=== PATIENT | female | born 1980 | race African-American/Black ===

== ENCOUNTER 2016-09-09 14:11 | Emergency (ER) | payer OTHER | END 2016-09-09 14:52 | disposition home or self-care (01) | LOC: ER 14:11 | DX: B34.9 Viral infection, unspecified (principal); F41.9 Anxiety disorder, unspecified; Z88.0 Allergy status to penicillin; Z88.2 Allergy status to sulfonamides; Z88.8 Allergy status to other drugs, medicaments and biological substances; Z91.040 Latex allergy status | CPT/HCPCS: 99283 ==

== ENCOUNTER 2016-11-11 10:31 | Inpatient (IN) | payer OTHER ==
--- NOTE | ~2016-11-11 | DS ---
Discharge Summary [facility] [address] [place]. [address] NAME: ELISABET SHETTY : 84 STATUS : DIS IN PAT#: [id number] AGE: 36 ADM/REG DATE : 11/11/16 MR#: [id number] REPORT SERV DATE: 11/23/16 DICTATED BY: MIL NETTLES DATE: 11/22/16 REPORT STATUS : Draft TRANSCRIBED BY: MODL DATE: 11/22/16 ADMISSION DATE: 11/11/2016 DISCHARGE DATE: 11/22/2016 REASON FOR ADMISSION: This is a 36-year-old female who was diagnosed with CVA. In May 2016, she went to rehab, had gotten better by August with only occasional left-sided facial numbness. However, over the eight days prior to admission, she had had severe right-sided pain, like frostbite and right-sided numbness and it had extended from her neck down to her toes, and had even included her face to some. DISCHARGE DIAGNOSES: 1. Transverse myelitis. 2. Multiple sclerosis. HOSPITAL COURSE: The patient admitted with, had a Neurology consult, brain imaging, had MRI of the thoracic spine which was normal. MRI cervical spine showed focal intramedullary inflammatory lesion at C2 level consistent with transverse myelitis. The patient also had additional thoracic MRI which showed white matter suppression demonstrating additional thoracic cord lesions. She would be positive for oligo banding. She was placed on oral steroids. The patient numbness and weakness would show much improvement. Initially, the plan was to try to get her an inpatient rehab, however, insurance had no rehab benefits, so after improvement, the patient was able to ambulate and shower herself using walker, so plans were made for outpatient PT with rolling walker for home with followup with Neurology in one to two months and that was completed today. DISCHARGE CONDITION: Stable. DISCHARGE MEDICATIONS: 1. Neurontin 800 mg p.o. q.6 hours. 2. Methylprednisone 4 mg p.o. one tablet the night of 11/22/2016 and one tablet in the a.m. 11/23/2016, then discontinue. 3. Percocet 5/325 one to two tabs q.6 hours p.r.n. DISCHARGE PLAN: The patient discharged to home with outpatient rehab, home rolling walker, and establish primary care physician. Follow up with Dr. Tang, Neurology, in four to eight weeks. DICTATED BY: MARY Del Valle/SUSY Mil Nettles APN Discharge Summary [address] [facility] [place] [address] NAME: ELISABET SHETTY : 84 STATUS : DIS IN PAT#: [id number] AGE: 36 ADM/REG DATE : 11/11/16 MR#: [id number] REPORT SERV DATE: 11/23/16 DICTATED BY: MIL NETTLES DATE: 11/22/16 REPORT STATUS : Draft TRANSCRIBED BY: SUSY DATE: 11/22/16 / [id number] CC: Steven Ford M.D.
--- NOTE | ~2016-11-11 | IDS ---
Interim Discharge Summary [facility] [address] [place]. [address] NAME: ELISABET SHETTY : 84 STATUS : ADM IN PAT#: [id number] AGE: 36 ADM/REG DATE : 11/11/16 MR#: [id number] REPORT SERV DATE: 11/19/16 DICTATED BY: MARIO KIRKPATRICK DATE: 11/19/16 REPORT STATUS : Draft TRANSCRIBED BY: MODL DATE: 11/19/16 ADMISSION DATE: 11/11/2016 DISCHARGE DATE: CURRENT HOSPITAL DIAGNOSES: 1. Transverse myelitis. 2. Multiple sclerosis. 3. History of arrhythmia. CONSULTATIONS: Neurology. PROCEDURES: 1. MRI of the thoracic spine done on the showing normal thoracic MRI with and without contrast. 2. MRI of the L-spine done on the showing normal lumbosacral spine including mid T10 to S1. Pre and post contrast images were utilized. 3. Cervical MRI done on the showing focal intramedullary inflammatory lesion, C2 level, consistent with transverse myelitis. 4. MRI thoracic spine done on the showing white matter suppression demonstrates additional thoracic cord lesions, however, please refer the results from the cervical MRI. 5. Spinal tap done on the showing an opening pressure of 12.5, CSF was clear. Subsequent cytology showed 28 wbcs, 4 monos, glucose was 50, and protein was 24.8. CURRENT PHYSICAL FINDINGS AND HPI: Please see dictated H and P by Dr. Ruiz. In brief, the patient is a 36-year-old female with previous diagnosis of IBS, presented with left- sided numbness and pain. She apparently had a previous episode sometime prior, diagnosed with CVA. Because of her unique symptoms, the patient was admitted for further diagnosis, treatment, and evaluation. Vital signs at time of admission, BP was 122/77. Blood pressures have been well controlled during her hospital stay. No significant fever during her hospital stay. Vitals otherwise stable. LABORATORY DATA: Lab work has shown normal BMP, normal Chem 20. B12 and folate 839 and 13.4. Troponin was less than 0.02. Thyroid functions were normal. C-reactive protein was normal. HCG was negative. TONIE was positive 1:80 nucleolar pattern. HIV was negative. CBC was unremarkable. Subsequent immunological tests showed an IgG CSF of 0.95. Positive IgG antibodies. are currently pending. HOSPITAL COURSE: The patient was initially admitted for her neurological complaints for evaluation and differentiation of her potential diagnosis. Neurology was consulted. Multiple MRIs and spinal tap were done as noted above. It appeared the patient had transverse myelitis, and suspicion for multiple sclerosis. She was , started on IV steroids, titrating over to Medrol Dosepak. PT and OT followed the patient. She was tolerating her pain discomfort on oral medications. Currently, the patient is attempting disposition to a rehab facility or long term facility. She is on p.o. pain medications and p.o. steroids. Interim Discharge Summary [address] [address] NAME: ELISABET SHETTY : 84 STATUS : ADM IN [facility]#: [id number] AGE: 36 ADM/REG DATE : 11/11/16 MR#: [id number] REPORT SERV DATE: 11/19/16 DICTATED BY: MARIO KIRKPATRICK DATE: 11/19/16 REPORT STATUS : Draft TRANSCRIBED BY: SUSY DATE: 11/19/16 WILBURF/SUSY Mario Kirkpatrick M.D. / [id number] CC: Mario Kirkpatrick M.D.
--- NOTE | ~2016-11-11 | HP ---
History And Physical [facility] [address] [place]. [address] NAME: ELISABET WEBB : 84 STATUS : ADM IN [facility]#: [id number] AGE: 36 ADM/REG DATE : 11/11/16 MR#: [id number] REPORT SERV DATE: 11/11/16 DICTATED BY: RIDDHI PRO DATE: 11/11/16 REPORT STATUS : Draft TRANSCRIBED BY: MODL DATE: 11/11/16 DATE OF ADMISSION: 11/11/2016 REASON FOR ADMISSION: Acute myelitis. HISTORY PRESENT ILLNESS: Ms. Webb is a 36-year-old female with history of previous IBS, had episode of left-sided numbness and pain in 05/2016 and actually diagnosed with a CVA. She went into rehabilitation and had gotten better by August with only occasional left-sided facial numbness as a result, however, over the last eight days, she had severe right-sided pain like a frostbite with right-sided numbness. This actually has been from her neck down to her toes, but has even included her face to some extent. The left side also has frosty finger tips and toes and she feels weak all over with difficulty walking. She has had several falls, but no injury. She denies any trouble with speaking or swallowing, however, has had some difficulty voiding. She feels like she has to push down her abdomen to void. Her bowels have been okay. Her abdomen, however, feels numb. She has had headache, blepharospasms, but no visual changes. She has had nausea with vomiting x1. No cardiovascular/pulmonary complaints. No bleeding. REVIEW OF SYSTEMS: Negative. PAST MEDICAL HISTORY: As mentioned above. History of abnormal heart rhythm for which she takes sotalol. MEDICATIONS: Neurontin, MiraLAX, sotalol, and Zanaflex. ALLERGIES: PENICILLIN, SULFA, AND DIFLUCAN. FAMILY HISTORY: Positive for strokes. SOCIAL HISTORY: The patient denies tobacco, alcohol, or drug history. PHYSICAL EXAMINATION: VITAL SIGNS: Blood pressure 117/70, pulse 91, respirations 18, saturating 99%. GENERAL: Awake, alert, and oriented x3. No apparent distress. HEENT: Pupils are equal and reactive to light. Extraocular movements are intact. She had no cranial nerve deficits. She had right-sided facial numbness, but no extraocular movement abnormalities. No other cranial nerve deficits. Funduscopic exam showed her normal discs. She had moist mucous membranes and normal oropharynx. NECK: Revealed no jugular venous distention, carotid bruits, lymphadenopathy, or goiter. CARDIAC: Regular rate and rhythm. No murmurs, gallops, or rubs. LUNGS: Clear to auscultation bilaterally. Good excursion. ABDOMEN: Nondistended, nontender. Bowel sounds normoactive. EXTREMITIES: No cyanosis, clubbing, or edema. Good pulses and good capillary refill. NEUROLOGIC: She had 4/5 strength in bilateral upper extremities and left lower extremity is somewhat worse distally than proximally, however, it is only at 3/5 right lower extremity History And Physical [address] [address] NAME: ELISABET WEBB : 84 STATUS : ADM IN [facility]#: [id number] AGE: 36 ADM/REG DATE : 11/11/16 MR#: [id number] REPORT SERV DATE: 11/11/16 DICTATED BY: RIDDHI PRO DATE: 11/11/16 REPORT STATUS : Draft TRANSCRIBED BY: SUSY DATE: 11/11/16 and diminished dorsiflexion bilaterally. She had diminished sensation throughout her right side relative to her left. Deep tendon reflexes were 3+, however, toes were downgoing bilaterally. SKIN: Warm and dry. PSYCHIATRIC: She is appropriate. LABORATORY EVALUATION: Sodium 142, potassium 3.8, chloride 109, bicarb 29, BUN 7, creatinine 0.6, glucose 74. Troponin I negative. White count 7.4, hemoglobin and hematocrit 13 and 39, platelets 360. Chest x-ray, no apparent disease. MRI reports a 0.4 x 0.8 cm midcord lesion at C2 consistent with demyelination. A brain scan done at the same time was negative, this was done with contrast. ASSESSMENT AND PLAN: High probability of new diagnosis of multiple sclerosis. The patient received Solu-Medrol in the emergency department. We should hold this pending the diagnosis. We will check an LP to rule out oligoclonal bands and myelin basic protein. Also, main differential diagnosis includes neuromyelitis optica, lupus transverse myelitis, sarcoidosis. We will check an TONIE, sedimentation rate, [id number] for an HUBERT level. Pain control will be essential. Unless Neurology feels otherwise, we will hold therapeutics until after the LP to optimize the diagnosis and future treatment regimen. She may need further rehabilitation following the hospitalization. MECHELLE/SUSY Riddhi Pro M.D. / [id number] CC: Steven Ford M.D. Y. Han, M.D.
--- NOTE | ~2016-11-11 | CN ---
Consultation Report [facility] [address] [place]. [address] NAME: ELISABET SHETTY : 84 STATUS : ADM IN PAT#: [id number] AGE: 36 ADM/REG DATE : 11/11/16 MR#: [id number] REPORT SERV DATE: 11/12/16 DICTATED BY: FRANCESCA ZABALA DATE: 11/12/16 REPORT STATUS : Draft TRANSCRIBED BY: MODL DATE: 11/12/16 NEUROLOGY CONSULTATION DATE OF CONSULTATION: 11/12/2016 REASON FOR CONSULTATION: Probable acute transverse myelitis. HOSPITALIST: Cleveland Mendoza M.D. HISTORY OF PRESENT ILLNESS: The patient is a 36-year-old female, who began having symptoms last Saturday morning. She was getting ready for work when she started to experience numbness and tingling and pain on the right side of her body. She was very concerned and so she went to the emergency room at [facility] for evaluation and treatment. According to the medical records from [facility], the patient describes her pain as "frostbite" and it seemed to be worse with walking and activity but still at rest was very uncomfortable. She was able to walk but had to drag her right leg because it was weak, numb, and heavy. She was in the ER twice and the CT of her head was negative and all her lab work was negative. In 05/2016, she was on her way home from work and had the same type of onset on the left side of her body. She had a workup for stroke and it was negative. She was treated with physical therapy and improved in three to four months. She was diagnosed with a stroke. She still has episodes of left facial numbness on and off with motor deficit. These episodes will last 15-20 minutes and then resolve. The patient did have some imaging back on 11/08/2016, the imaging was done at the diagnostic center on [facility]. She had an MRI of the C-spine and brain with and without contrast. Imaging on the C-spine showed lesion on her cervical spine, but no lesions on her brain. While she was at the diagnostic center, she was instructed to come to [facility] for neurology evaluation and treatment. The patient mentions that over the last couple of days, she has had difficulty urinating, she has had to push on her abdomen in order to empty her bladder. She has had some constipation. PAST MEDICAL HISTORY: Irritable bowel syndrome, a stroke-like episode in 05/2016 and a history of cardiac arrhythmias. PAST SURGICAL HISTORY: None. SOCIAL HISTORY: The patient is single. She has one child. 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 She does not smoke, drink, alcohol, or use illicits. FAMILY HISTORY: The patient's mother is alive. She has hypertension and gout. Her father . He had diabetes and rectal cancer. She has a maternal aunt who has breast cancer and Consultation Report [facility] [id number] [place]. [address] NAME: ELISABET SHETTY : 84 STATUS : ADM IN [facility]#: [id number] AGE: 36 ADM/REG DATE : 11/11/16 MR#: [id number] REPORT SERV DATE: 11/12/16 DICTATED BY: FRANCESCA ZABALA DATE: 11/12/16 REPORT STATUS : Draft TRANSCRIBED BY: SUSY DATE: 11/12/16 another aunt who has lupus. REVIEW OF SYSTEMS: Please refer to HPI for pertinent positives. PHYSICAL EXAMINATION: GENERAL: The patient is a 36-year-old female, who is afebrile. VITAL SIGNS: Heart rate is 86, respiratory rate 16, O2 saturations on room air 97%, blood pressure 109/66. She stands 160 cm tall and weighs 68.94 kg. NEUROLOGIC: The patient is slightly anxious, but she is alert and oriented x4, pleasant, communicates appropriately. Speech is clear. Language is fluent. Pupils are 4 mm. PERRLA. The patient does have slight nystagmus. Vision via confrontation is full in both blanco. Funduscopic exam; positive red reflex bilaterally, no nicking, hemorrhaging, or papillary edema. Normal disc cup ratio. Cranial nerves are intact except the patient reports diminished sensation on the right side of her face compared to the left. The patient does have a pronator drift on the right compared to the left. She is weak in the upper extremities on the right and a 3/5 compared to the left, which is 5/5. She does report diminished sensation on the right compared to the left. Upper DTRs are 2+ bilaterally and brisk. In the lower extremities, she is weak on the right compared to the left, a 3/5 on the right compared to a 5/5 on the left. DTRs are 2+ bilaterally. The patient does have decreased sensation in the lower extremities and the feet. Both feet, diminished sensation from the toes to the ankle on the left and from toes to mid calf on the right. She also has diminished sensation from the chest at approximately T4 on the left, down to T4-L4 on the right and she has diminished sensation approximately S3-L3 on the left. The patient can get out of the bed with some effort and slight assistance. She can ambulate with a walker and ambulate with minimal assistance on her own. Gait is very slow. She does tend to drag her right foot. There is no spasticity. LABORATORY DATA: CBC is normal. BMP normal. Chest x-ray, no acute changes. ASSESSMENT/PLAN: Probable acute transverse myelitis. At this point, we will request the actual images from diagnostic associates, which would include an MRI of the C-spine and brain, this is to be loaded on the PAC system. At this point, we will obtain an MRI of the T-spine and L-spine with and without gadolinium. The patient is on gabapentin 300 mg t.i.d., we will increase this dose to 300 mg at 8 a.m., noon, and 4 p.m. and then add 600 mg at bedtime. We will continue her Flexeril at bedtime. The patient will undergo a lumbar puncture under fluoro per Interventional Radiology to rule out multiple sclerosis. We will check additional lab work. We will order PT and Occupational Therapy to work with the patient while she is here. Once the LP is done, we may consider IV steroids if the patient's symptoms do not improve. Thank you again for including us in consultation. We will continue to follow with you. Consultation Report [facility] [id number] [place]. [address] NAME: ELISABET SHETTY : 84 STATUS : ADM IN PAT#: [id number] AGE: 36 ADM/REG DATE : 11/11/16 MR#: [id number] REPORT SERV DATE: 11/12/16 DICTATED BY: FRANCESCA ZABALA DATE: 11/12/16 REPORT STATUS : Draft TRANSCRIBED BY: SUSY DATE: 11/12/16 DEIRDRE/MODL Francesca Zabala DNP, [facility]- / [id number] CC: Graham Ruiz M.D.
[2016-11-11 12:41] LABS: BASOPHILS 0.1 %; BASOPHILS ABSOLUTE 0.01 10/3/uL (0.0-0.16); EOSINOPHILS ABSOLUTE 0.15 10/3/uL (0.0-0.53); ER CBC TAT 0 Hrs 07 Mins; HEMATOCRIT 39.8 % (36.0-48.0); HEMOGLOBIN 13.6 g/dL (12.0-16.0); IMMATURE GRANULOCYTES 0.3 %; IMMATURE GRANULOCYTES ABSOLUTE 0.02 10/3/uL (0.0-0.11); LYMPHOCYTES 33.4 %; LYMPHOCYTES ABSOLUTE 2.47 10/3/uL (0.67-4.30); MEAN CORPUS HGB CONC 34.2 g/dL (32.0-36.0); MEAN CORPUSCULAR HEMOGLOB 32.2 pg (26.0-34.0); MEAN PLATELET VOLUME 8.5 fL (9.2-13.0); MONOCYTES 6.6 %; MONOCYTES ABSOLUTE 0.49 10/3/uL (0.21-1.20); NEUTROPHILS 57.6 %; NEUTROPHILS ABSOLUTE 4.26 10/3/uL (2.02-8.40); PLATELET COUNT 360 10/3/uL (150-400); RBC DISTRIBUTION WIDTH 12.8 % (12.0-16.0); RED CELL COUNT 4.22 10/6/uL (4.0-5.6); WHITE BLOOD CELLS 7.4 10/3/uL (4.5-10.5)
[2016-11-11 12:42] LABS: MANUAL DIFF NO %; MEAN CORPUSCULAR VOLUME 94.3 fL (80-100)
[2016-11-11 12:48] LABS: PARTIAL THROMBO TIME 29.5 SEC (22.5-37.2); PROTIME (NOT ORD) 13.3 SEC (12.0-14.5)
[2016-11-11 13:01] LABS: BUN (BLOOD UREA NITROGEN) 7 MG/DL (6-23); CALCIUM, SERUM 9.2 MG/DL (8.5-10.4); CHEST PAIN PROFILE TAT 0 Hrs 27 Mins; CHLORIDE, SERUM 109 MMOL/L (96-112); CO2 (CARBON DIOXIDE) 29 MMOL/L (24-34); GFR AFRICAN AMERICAN 138 ML/MIN (>=60); GFR NON AFRICAN AMERICAN 119 ML/MIN (>=60); GLUCOSE, SERUM 74 MG/DL (60-99); POTASSIUM, SERUM 3.8 MMOL/L (3.5-5.3); SODIUM, SERUM 143 MMOL/L (135-148); TROPONIN I <0.02 NG/ML (<0.05)
[2016-11-11] MEDS ORDERED: BETAPACE80 PO (13:47)
[2016-11-11] MEDS ORDERED: ACET500CAP PO (13:48)
[2016-11-11] MEDS ORDERED: ZANAFLEX 4 MG TA4 MG PO (13:48)
[2016-11-11] MEDS ORDERED: ZYRTEC ALLGY10 MG PO (13:48)
[2016-11-11] MEDS ORDERED: NEUR800 PO (13:48)
[2016-11-11] MEDS ORDERED: MIRALAX POWDER1 PKT PO (13:49)
[2016-11-11 18:56] LABS: C-REACTIVE PROTEIN < 2.9 MG/L (<8.0)
[2016-11-12 07:04] LABS: ALBUMIN 3.9 G/DL (3.5-5.0); ALKALINE PHOSPHATASE 97 U/L (45-117); BUN (BLOOD UREA NITROGEN) 8 MG/DL (6-23); CALCIUM, SERUM 9.6 MG/DL (8.5-10.4); CHLORIDE, SERUM 108 MMOL/L (96-112); CREATININE 0.68 MG/DL (0.55-1.02); GFR AFRICAN AMERICAN 132 ML/MIN (>=60); GFR NON AFRICAN AMERICAN 114 ML/MIN (>=60); GLOBULIN 4.1 G/DL (2.5-4.1); POTASSIUM, SERUM 4.1 MMOL/L (3.5-5.3); SGOT(AST) 18 U/L (5-40); SGPT(ALT) 21 U/L (5-65); SODIUM, SERUM 140 MMOL/L (135-148); TOTAL BILIRUBIN 0.4 MG/DL (0-1.2)
[2016-11-12 07:05] LABS: CO2 (CARBON DIOXIDE) 24 MMOL/L (24-34); GLUCOSE, SERUM 106 MG/DL (60-99)
[2016-11-12 12:31] LABS: CPK 89 U/L (0-200); FREE T4 1.21 NG/DL (0.76-1.46)
[2016-11-12 12:32] LABS: C-REACTIVE PROTEIN < 2.9 MG/L (<8.0); FOLATE 13.5 NG/ML (>5.2)
[2016-11-13 09:35] LABS: HEMATOCRIT 39.6 % (36.0-48.0); HEMOGLOBIN 13.3 g/dL (12.0-16.0); PLATELET COUNT 320 10/3/uL (150-400)
[2016-11-13 09:47] LABS: CALCIUM, SERUM 8.9 MG/DL (8.5-10.4); CHLORIDE, SERUM 110 MMOL/L (96-112); CO2 (CARBON DIOXIDE) 26 MMOL/L (24-34); CREATININE 0.56 MG/DL (0.55-1.02); GFR AFRICAN AMERICAN 141 ML/MIN (>=60); GFR NON AFRICAN AMERICAN 122 ML/MIN (>=60); POTASSIUM, SERUM 3.9 MMOL/L (3.5-5.3); SODIUM, SERUM 142 MMOL/L (135-148)
[2016-11-13 09:48] LABS: BUN (BLOOD UREA NITROGEN) 12 MG/DL (6-23); GLUCOSE, SERUM 70 MG/DL (60-99)
[2016-11-13 14:27] LABS: TOTAL PROTEIN, CSF 24.8 MG/DL (15-45)
[2016-11-13 14:46] LABS: CSF BASO 0 % (NO REF RANGE); CSF COLOR (NOT ORD) COLORLESS (COLORLESS); CSF EOS 0 % (0-1); CSF LYMPH (NOT ORD) 96 % (28-96); CSF MONO 4 % (16-56); CSF SEGS (NOT ORD) 0 % (0-7)
[2016-11-13 14:47] LABS: CSF APPEARANCE (NOT ORD) CLEAR (CLEAR); CSF RBC (NOT ORD) 14 MM3 (NO REFERENCE); CSF XANTHROCHROMIA NEG (NEG)
[2016-11-13 14:49] LABS: CSF WBC (NOT ORD) 28 /uL (0-10)
[2016-11-14 10:44] LABS: ANA PATTERN NUCLEOLAR
[2016-11-16 10:19] LABS: IGG INDEX 0.95 (0.25-0.75)
[2016-11-16 13:29] LABS: HSV DNA TYPE 1 Not Detected (NOTDET); HSV DNA TYPE 2 Not Detected (NOTDET)
[2016-11-17 09:28] LABS: ALBUMIN INDEX 3.2 ratio (0.0-9.0); CSF IGG SYNTHESIS RATE 7.3 mg/d (0.0-8.0); CSF IGG/ALBUMIN RATIO 0.34 ratio (0.09-0.25); CSF OLIGOCLONAL BANDS Positive (NEG); CSF OLIGOCLONAL BANDS NUMBER 15 Bands (0-1); IGG INDEX 1.07 ratio (0.28-0.66); IMMUNOGLOBULIN G, SERUM 1190 mg/dL (768-1632)
[2016-11-22] MEDS ORDERED: MEDROLPAK4 PO (11:30)
[2016-11-22] MEDS ORDERED: PCET PO (11:30)
== END 2016-11-22 13:39 | disposition home or self-care (01) | DRG 60 ==
LOC: ER 10:31 → 1SO 15:28
PROVIDERS: Emergency Medicine; Internal Medicine; Nurse Practitioner
PROC: 009U3ZZ Drainage of Spinal Canal, Percutaneous Approach (ICD-10-PCS; principal; 2016-11-13)
DX: G35 Multiple sclerosis (principal); K58.1 Irritable bowel syndrome with constipation; Z86.73 Personal history of transient ischemic attack (TIA), and cerebral infarction without residual deficits; Z79.891 Long term (current) use of opiate analgesic; Z79.899 Other long term (current) drug therapy; Z88.0 Allergy status to penicillin; Z88.2 Allergy status to sulfonamides; Z88.8 Allergy status to other drugs, medicaments and biological substances
CPT/HCPCS: 62270; 71010; 72141; 72146; 72157; 72158; 77003; 80048; 80053; 81001; 82040; 82042; 82088; 82164; 82550; 82607; 82746; 82784; 82784-59; 82945; 83735; 83916; 84157; 84439; 84443; 84484; 84703; 85014; 85018; 85025; 85049; 85610; 85652; 85730; 86039; 86140; 86255; 87389; 87529; 87529-59; 88112; 89051; 93005; 96374; 97110-GO; 97110-GP; 97116-GP; 97162-GP; 97166-GO; 97535-GO; 99285; A9270-GY; A9577; G8978-CK-GP; G8979-CI-GP; J2405; J2930